=== PATIENT | male | born 1955 ===

== ENCOUNTER → 2020-02-21 | Outpatient (CLI) | payer MEDICARE, BC | LOC: PLD 12:18 → LAB SHORT 12:18 | DX: L82.1 Other seborrheic keratosis (principal) | CPT/HCPCS: 88305 ==

== ENCOUNTER → 2021-07-23 | Outpatient (CLI) | payer MEDICARE, BC | END | disposition home or self-care (01) | LOC: LAB SHORT 11:34 → LAB 11:34 | DX: D23.39 Other benign neoplasm of skin of other parts of face (principal) | CPT/HCPCS: 88305 ==

== ENCOUNTER → 2022-07-15 | Outpatient (CLI) | payer MEDICARE, BC | LOC: LAB SHORT 12:12 → LAB 12:12 | DX: D48.5 Neoplasm of uncertain behavior of skin (principal) | CPT/HCPCS: 88305 ==